=== PATIENT | male | born 1950 | race Caucasian/White ===

== ENCOUNTER 2023-03-23 05:54 | Emergency (ER) | payer OTHER ==
[~2023-03-23] VITALS: Ht 177.8 cm; Wt 88.8 kg
[2023-03-23 06:47] LABS: Basophils # (auto) 0 10 ^3/uL (0-0.2); Basophils % (auto) 0.4 % (0.0-2.0); Eosinophils # (auto) 0.1 10 ^3/uL (0-0.8); Eosinophils % (auto) 1.9 % (0.0-7.0); Hematocrit 40.2 % (41.0-53.0); Hemoglobin 13.5 g/dL (13.5-17.5); Lymphocytes # (auto) 0.5 10 ^3/uL (0.4-5.4); Lymphocytes % (auto) 9.5 % (10.0-50.0); Mean Corpuscular Hemoglobin 31.9 pg (28.0-32.0); Mean Corpuscular Hgb Conc. 33.5 g/dL (32.0-36.0); Mean Corpuscular Volume 95.4 fL (80.0-100.0); Monocytes # (auto) 0.5 10 ^3/uL (0-1.3); Neutrophils # (auto) 4.6 10 ^3/uL (1.6-8.6); Neutrophils % (auto) 80.2 % (37.0-80.0); Nucleated Red Blood Cells % 0.1 %; Red Blood Cells 4.22 10^6/uL (4.5-5.90); Red Cell Distribution Width 13.6 % (11.8-14.3); White Blood Cell 5.7 10^3/uL (4.4-10.8)
[2023-03-23 07:01] LABS: INR 0.95 (0.9-1.15); Partial Thromboplastin Time 26.7 SEC (24.5-34.5)
[2023-03-23 07:03] LABS: Alanine Aminotransferase 52 U/L (7-40); Albumin 3.9 g/dL (3.2-4.8); Alkaline Phosphatase 74 U/L (46-116); Anion Gap 5 (5-15); Aspartate Aminotransferase 40 U/L (13-40); BUN/Creatinine Ratio 23.6 (10.0-20.0); Blood Urea Nitrogen 26 mg/dL (9-23); Calcium 8.9 mg/dL (8.7-10.4); Carbon Dioxide 29 mmol/L (20-30); Chloride 105 mmol/L (98-107); Glucose 117 mg/dL (74-106); Potassium 4.3 mmol/L (3.5-5.1); Sodium 139 mmol/L (136-145)
[2023-03-23 07:04] LABS: Bilirubin, Total 0.5 mg/dL (0.2-1.0)
[2023-03-23 07:30] VITALS: PULSE 84; RESP 18; O2SAT 95
[2023-03-23 08:30] VITALS: PULSE 82; RESP 20; TEMP 98; O2SAT 93
[2023-03-23 09:30] LABS: COVID19 ANTIGEN SOFIA FIA NEGATIVE (NEGATIVE)
[2023-03-23] MEDS ORDERED: cefTRIAXone 1GM/50ML D5W 50 ML IV ONE (10:00)
[2023-03-23] MEDS ORDERED: ALBUTEROL SULF 2.5 MG/0.5ML(0.5%) NEB SOLN NEB ONE (10:00)
[2023-03-23] MEDS ORDERED: IPRATROPIUM BROM 0.5 MG/2.5ML INH SOL NEB ONE (10:00)
[2023-03-23] MEDS ORDERED: methylPREDNISolone SOD SUCC 125 MG/2 ML VL IV ONE (10:00)
[2023-03-23] MEDS ORDERED: DEXT60TA4 PO (11:13)
[2023-03-23 11:30] VITALS: BP 166/77; PULSE 89; RESP 16; O2SAT 94
== END 2023-03-23 11:47 | disposition home or self-care (01) ==
LOC: EDBD 05:54 → ER 05:54
DX: J45.901 Unspecified asthma with (acute) exacerbation (principal); I10 Essential (primary) hypertension; Z90.49 Acquired absence of other specified parts of digestive tract; Z20.822 Contact with and (suspected) exposure to COVID-19
CPT/HCPCS: 36415; 71045; 80053; 83880; 84484; 85025; 85610; 85730; 87426; 93005; 94640; 96365; 96375; 99285; J0696; J2930; J7644